=== PATIENT | male | born 1970 | race Caucasian/White ===

== ENCOUNTER → 2022-07-26 | Outpatient (CLI) | payer OTHER | LOC: CARD 14:30 | PROVIDERS: ATTEND Internal Medicine Hematology & Oncology | DX: C82.41 Follicular lymphoma grade IIIb, lymph nodes of head, face, and neck (principal) | CPT/HCPCS: 93306 ==

== ENCOUNTER 2022-07-30 13:14 | Day surgery (SDC) | payer OTHER ==
[2022-07-30] VITALS (9 sets, daily range): BP systolic 91–141; BP diastolic 52–92
[~2022-07-30] VITALS: Ht 182.9 cm; Wt 79.5 kg
[2022-07-30] MEDS ORDERED: 0.9% SODIUM CHLORIDE PF INJ 20 ML VIAL ONE (13:20)
[2022-07-30] MEDS ORDERED: LIDOCAINE/EPI 2% 1:200,00 (XYLOCAINE) 20 ML VIAL ONE (13:20)
[2022-07-30] MEDS ORDERED: HEParin (CENTRAL IV FLUSH) 500 UNIT/5 ML SYR ONE (13:20)
[2022-07-30] MEDS ORDERED: HEParin (CENTRAL IV FLUSH) 500 UNIT/5 ML SYR INJ ONE (13:43)
[2022-07-30] MEDS ORDERED: LIDOCAINE/EPI 2% 1:200,00 (XYLOCAINE) 20 ML VIAL INJ ONE (13:44)
[2022-07-30] MEDS ORDERED: 0.9% SODIUM CHLORIDE PF INJ 20 ML VIAL IV ONE (13:45)
[2022-07-30] MEDS ORDERED: ceFAZolin INJECTION 2,000 MG in NS (IVPB) 50 ML IV ONE (13:45)
[2022-07-30] MEDS ORDERED: fentaNYL INJ 100 MCG/2 ML AMP ONE (14:21)
[2022-07-30] MEDS ORDERED: MIDAZOLAM 2 MG/2 ML (VERSED) VIAL ONE (14:22)
[2022-07-30] MEDS ORDERED: PROPOFOL INJECTION 50 ML IV ONE (14:22)
[2022-07-30] MEDS ORDERED: LACTATED RINGERS 1,000 ML IV PRN (14:30)
--- NOTE | 2022-07-30 15:21 | Progress Note-Pre Operative ---
Pre-Operative Progress Note Date of Available H&P: Jul 26, 2022 Date H&P Reviewed: Jul 30, 2022 Time H&P Reviewed: 15:21 History & Physical: H&P Reviewed, Patient Examed, No changes noted Pre-Operative Diagnosis: lymphoma RON TANNER DO Jul 30, 2022 15:21
--- NOTE | 2022-07-30 15:52 | Progress Note-Post Operative ---
Post-Operative Progess Note Surgeon (s)/Two Way Radio Technician (s) Surgeon RON TANNER DO Two Way Radio Technician: na Pre-Operative Diagnosis lymphoma Post-Operative Diagnosis same Procedure & Operative Findings Date of Procedure 07/30/22 Procedure Performed/Findings PROCEDURE: Right internal jugular port placement using ultrasound guidance. COMPLICATIONS: None. INDICATIONS: The patient is a 51 year old male with lymphoma. Patient understands the risks and benefits of port placement and wished to proceed with the procedure. Consent was signed on the chart. PROCEDURE: The patient was taken to the operating suite, was prepped and draped in the sterile fashion. A surgical pause was performed. Ultrasound was used to locate the internal jugular vein. Once located anesthetic was infiltrated above it. Using micro-access kit, the right internal vein was accessed. Dark nonpulsatile blood was withdrawn. The wire was inserted. Fluoroscopy assured proper placement. The needle was removed. The micro-access dilator was advanced over the wire and the wire was removed. The regular wire was inserted and fluoroscopy assured proper placement. The wire was then secured. Local anesthetic was used to anesthetize from the neck for tunneling down to the right chest and for pocket creation. A 15 blade scalpel was used to make an incision over the right chest. Cautery was used to dissect down to the pectoral fascia. A pocket was created with blunt dissection. The dilator sheath was then advanced over the wire under fluoroscopy and the dilator and wire were removed. The [place] catheter was inserted through the sheath and the sheath was then removed. The [place] wire was removed. The catheter was then tunneled to the right chest pocket. Fluoroscopy was used to cut to length and this was then attached to the port which was then placed within the pocket. The port was then accessed without difficulty. It was then flushed with saline and then heparin. The subcutaneous tissues were then reapproximated using 3-0 Vicryl. The areas were then washed and dried. Skin Affix was placed over incision. The insertion point of the neck Skin Affix was placed over the incision. The patient tolerated the procedure well without complication and was taken to recovery room in stable condition. Chest x-ray is pending. Anesthesia Type mac c local Estimated Blood Loss Estimated blood loss (mL): minimal Specimens/Packing Specimens Removed RON Almendarez DO Jul 30, 2022 15:52
--- NOTE | 2022-07-30 15:54 | Anesthesia-General Post-Op ---
MAC Patient Condition Mental Status/LOC: Same as Preop Cardiovascular: Satisfactory Nausea/Vomiting: Absent Respiratory: Satisfactory Pain: Controlled Complications: Absent Post Op Complications Complications None Follow Up Care/Instructions Patient Instructions None needed. Anesthesiology Discharge Order Discharge Order Patient is doing well, no complaints, stable vital signs, no apparent adverse anesthesia problems. No complications reported per nursing. GEREMIAS NOLAN CRNA Jul 30, 2022 15:54
--- NOTE | 2022-07-30 15:55 | Discharge Inst-Simple/Standard ---
Discharge Inst-Standard Patient Instructions/Follow Up Plan of Care/Instructions/FU: 2 weeks Ryan Activity as Tolerated: Yes Discharge Diet: Regular Diet Other Inst to Patient Follow up Appt: Make appointment for 2 week. Instructions: No lifting greater than 10 pounds. No strenuous activity. May shower in 24 hours, no tub bath or soaking. Use incentive spirometer at home as directed. No Smoking Skin/Wound Care: You have special glue over your incision that will fall off on it's own. Ice pack on 15 min and off 30 min and repeat. This reduces swelling and discomfort. Symptoms to Report: Appetite Changes, Extremity Discoloration, Numbness/Tingling, Swelling Increased, Bleeding Excessive, Eyesight Changes, Pain Increased, Urine Color Change, Constipation(Persistent), Fever over 101 degree F, Pain/Pressure in chest, Urinating Difficulty, Cough Up/Vomit Blood, Heart Beat Irreg/Pounding, Pain/Pressure in jaw, Vaginal Bleeding Increase, Cramps in feet or legs, Lightheadedness, Pain/Pressure in shoulder, Diarrhea(Persistent), Memory Changes Suddenly, Questions/Concerns, Weight gain consecutive days, Dizziness/Fainting, Nausea/Vomiting, Shortness of Breath, Weight gain over 2 pounds If questions or concerns contact your physician Or seek help at emergency department. RON TANNER DO Jul 30, 2022 15:55
[2022-07-30] MEDS ORDERED: ONDANSETRON 4 MG/2 ML (SDV) Z0FRAN IVP PRN (16:00)
[2022-07-30] MEDS ORDERED: fentaNYL INJ 100 MCG/2 ML AMP IVP ONE (16:00)
--- NOTE | 2022-07-30 16:20 | Diagnostic Imaging Report ---
Right IJ catheter placed with the tip at the lower SVC in good position. No pneumothorax or pleural fluid. The heart size is within normal limits and there is no failure pattern. There is a 1.4 cm left perihilar density which may merely reflect summation of vascular structures but could be a mass. A short-term follow-up PA and lateral chest x-ray as follow-up recommended unless there is a known lesion at that site worked up from an outside facility. IMPRESSION: 1. Catheter in good position without its complication. 2. Indeterminate findings, mass versus summation artifact projecting left perihilar. PA and lateral follow-up is recommended Dictated by: Dictated on workstation # [id number]
--- NOTE | 2022-07-30 19:55 | Diagnostic Imaging Report ---
INDICATION: Port-A-Cath placement Intraoperative fluoroscopy view obtained with portable intensifier in surgery. Single view obtained demonstrates port over the right chest with catheter in the right internal jugular vein and catheter tip overlying the low SVC. 15.5 seconds of fluoroscopy time was used IMPRESSION: Intraoperative fluoroscopy view demonstrates Port-A-Cath placement as above. Dictated by: Dictated on workstation # [id number]
== END 2022-07-30 17:25 | disposition home or self-care (01) ==
LOC: SDC 13:14
PROVIDERS: ATTEND Surgery
DX: C85.90 Non-Hodgkin lymphoma, unspecified, unspecified site (principal); I87.2 Venous insufficiency (chronic) (peripheral); F17.210 Nicotine dependence, cigarettes, uncomplicated
CPT/HCPCS: 71045; 76000; 87081

== ENCOUNTER 2022-11-22 13:46 | Outpatient (RCR) | payer OTHER | END 2022-11-23 | disposition home or self-care (01) | LOC: ONC 13:46 | PROVIDERS: ATTEND Radiology Radiation Oncology | DX: Z51.0 Encounter for antineoplastic radiation therapy (principal); C82.41 Follicular lymphoma grade IIIb, lymph nodes of head, face, and neck; E78.2 Mixed hyperlipidemia; Z79.899 Other long term (current) drug therapy | CPT/HCPCS: 77300; 77301; 77334; 77338; 77386; 77470; 99205 ==

== ENCOUNTER 2022-12-04 10:50 | Outpatient (RCR) | payer OTHER | END 2022-12-24 | disposition home or self-care (01) | LOC: ONC 10:50 | PROVIDERS: ATTEND Radiology Radiation Oncology | DX: Z51.0 Encounter for antineoplastic radiation therapy (principal); C82.41 Follicular lymphoma grade IIIb, lymph nodes of head, face, and neck; E78.2 Mixed hyperlipidemia; Z79.899 Other long term (current) drug therapy | CPT/HCPCS: 77336; 77386 ==

== ENCOUNTER 2023-01-09 10:27 | Outpatient (RCR) | payer OTHER | END 2023-01-21 | disposition home or self-care (01) | LOC: ONC 10:27 | PROVIDERS: ATTEND Radiology Radiation Oncology | DX: C82.41 Follicular lymphoma grade IIIb, lymph nodes of head, face, and neck (principal) | CPT/HCPCS: 99213 ==

== ENCOUNTER → 2023-10-09 | Outpatient (CLI) | payer OTHER ==
[~2023-10-09] VITALS: Ht 182.9 cm; Wt 72.7 kg
== END | disposition home or self-care (01) ==
LOC: PREOP 05:37
PROVIDERS: ATTEND Surgery
DX: Z01.818 Encounter for other preprocedural examination (principal)

== ENCOUNTER 2023-10-13 09:57 | Day surgery (SDC) | payer OTHER ==
[2023-10-13] VITALS (14 sets, daily range): BP systolic 83–114; BP diastolic 43–88
[~2023-10-13] VITALS: Ht 182.9 cm; Wt 71.5 kg
[2023-10-13] MEDS ORDERED: LACTATED RINGERS 1,000 ML 1,000 ML IV PRN (10:45)
[2023-10-13] MEDS ORDERED: ceFAZolin INJECTION 2,000 MG in NS (IVPB) 50 ML 50 ML IV ONE (10:45)
[2023-10-13] MEDS ORDERED: LIDOCAINE 2% w/EPI 1:100,000 20 ML VIAL ONE (11:00)
--- NOTE | 2023-10-13 11:46 | Progress Note-Pre Operative ---
Pre-Operative Progress Note Date H&P Reviewed: Oct 13, 2023 Time H&P Reviewed: 11:45 History & Physical: H&P Reviewed, Patient Examed, No changes noted Pre-Operative Diagnosis: MALFUNCTIONING PORT RON TANNER DO Oct 13, 2023 11:45
[2023-10-13] MEDS ORDERED: LIDOCAINE 2% w/EPI 1:100,000 20 ML VIAL INJ ONE (12:13)
--- NOTE | 2023-10-13 12:22 | Anesthesia-General Post-Op ---
MAC Patient Condition Mental Status/LOC: Same as Preop Cardiovascular: Satisfactory Nausea/Vomiting: Absent Respiratory: Satisfactory Pain: Controlled Complications: Absent Post Op Complications Complications None Follow Up Care/Instructions Patient Instructions None needed. Anesthesiology Discharge Order Discharge Order Patient is doing well, no complaints, stable vital signs, no apparent adverse anesthesia problems. No complications reported per nursing. ARDEN CONNELLY CRNA Oct 13, 2023 12:22
--- NOTE | 2023-10-13 12:26 | Progress Note-Post Operative ---
Post-Operative Progess Note Surgeon (s)/Cardiology Teacher (s) Surgeon RON TANNER DO Cardiology Teacher: na Pre-Operative Diagnosis MALFUNCTIONING PORT Post-Operative Diagnosis Port catheter broken Procedure & Operative Findings Date of Procedure 10/13/23 Procedure Performed/Findings PROCEDURE: Removal of port, COMPLICATIONS: None INDICATIONS: The patient is a 52 year-old male who had a port previously placed. Patient is ok to have port removed malfunctioning. The patient was explained risk and benefits of the procedure and wished to proceed with procedure. Consent was signed on the chart. PROCEDURE: The patient was taken to the operating suite and was prepped and draped in sterile fashion. A surgical pause was performed. Local anesthetic was infiltrated to the area around the port and catheter. A number 15 blade scalpel was used to make an incision near right clavicle. Catheter was dissected around and pulled out which distall about 2 inches was broken off. Incision was made at port. Cautery was used to dissect down to the port which was then grasped and then dissected around. The catheter was removed in its entirety. The port was then able to be dissected out of the pocket and elevated. The wound was then irrigated with copious amounts of irrigation. Hemostasis had been achieved. The subcutaneous tissues were then reapproximated using 4-0 Vicryl. The area was then washed and dried and Skin Affix placed over the incision. The patient tolerated the procedure well without complication and was taken to recovery room in stable condition. Anesthesia Type mac c local Estimated Blood Loss Estimated blood loss (mL): minimal Specimens/Packing Specimens Removed none RON TANNER DO Oct 13, 2023 12:26
--- NOTE | 2023-10-13 12:57 | Diagnostic Imaging Report ---
INDICATION: Catheter complication Single AP view of chest is obtained. Since 07/30/2022, there has been apparent fracture of right anterior chest wall catheter with removal of the port. There is an approximately 16 cm in length catheter remnant extending from the right brachiocephalic vein to the right atrium. There is no pneumothorax or consolidation. IMPRESSION: Residual catheter remnant extending from right brachiocephalic vein to right atrium without other complication. Dictated by: Dictated on workstation # [id number]
[2023-10-13] MEDS ORDERED: MIDAZOLAM INJ 5 MG/5 ML VIAL ONE (13:07)
[2023-10-13] MEDS ORDERED: fentaNYL INJECTION 100 MCG/2 ML VIAL ONE (13:07)
[2023-10-13] MEDS ORDERED: HEParin (CATH LAB) 1,000 ML IV ONE (13:08)
[2023-10-13] MEDS ORDERED: NS IV 1000 ML 0 ML ONE (13:08)
[2023-10-13] MEDS ORDERED: LIDOCAINE 1% INJ 20 ML VIAL ONE (13:08)
--- NOTE | 2023-10-13 13:16 | Consultation-Cardiology ---
HPI-Cardiology Cardiology Consultation Date of Consultation 10/13/23 Date of Admission Time Seen by Provider: 13:13 Indication: Extraction of malfunctioning port HPI 52-year-old gentleman with a history of a port placed in 2021, became malfunction, was undergoing extraction today and portion of the port broke off. I was called for evaluation and extraction of the port Home Medications & Allergies Allergies: Coded Allergies: No Known Drug Allergies (Unverified , 07/30/22) Home Medication List Reviewed: Yes ZBA-[id number]-[id number] Hx Patient Social History Marital Status: Employed/Student: employed Smoking Status: Current Everyday Smoker Type Used: Cigarettes Recent Hopitalizations: No Alcohol Use?: No Past Medical History No known past history Family Medical History Significant Family History: No Pertinent Family Hx Review of Systems-General Review of Systems Constitutional: no symptoms reported, see HPI EENTM: see HPI, no symptoms reported Respiratory: no symptoms reported, see HPI Cardiovascular: see HPI Gastrointestinal: no symptoms reported, see HPI Genitourinary: no symptoms reported, see HPI Musculoskeletal: no symptoms reported, see HPI Skin: no symptoms reported, see HPI Psychiatric/Neurological: No Symptoms Reported, See HPI Physical Exam Physical Exam Vital Signs Vital Signs - First Documented 10/13/23 10:00 Temp 36.5 Pulse 70 Resp 20 B/P (MAP) 114/88 (97) Pulse Ox 98 O2 Delivery Room Air Capillary Refill : Height, Weight, BMI Height: '" Weight: lbs. oz. kg; 21.37 BMI Method: General Appearance: No Apparent Distress, WD/WN Eyes: Bilateral Eye Normal Inspection, Bilateral Eye PERRL, Bilateral Eye EOMI HEENT: PERRL/EOMI, TMs Normal, Normal ENT Inspection, Pharynx Normal, Moist Mucous Membranes Neck: Full Range of Motion, Normal Inspection, Non Tender, Supple, Carotid Bruit Respiratory: Chest Non Tender, Normal Breath Sounds, No Accessory Muscle Use, No Respiratory Distress Cardiovascular: Regular Rate, Rhythm, No Edema, No Gallop, No JVD, No Murmur, Normal Peripheral Pulses Gastrointestinal: Normal Bowel Sounds, No Organomegaly, No Pulsatile Mass, Non Tender, Soft Back: Normal Inspection, No CVA Tenderness, No Vertebral Tenderness Extremity: Normal Capillary Refill, Normal Inspection, Normal Range of Motion, Non Tender, No Calf Tenderness, No Pedal Edema Neurologic/Psychiatric: Alert, Oriented x3, No Motor/Sensory Deficits, Normal Mood/Affect Skin: Normal Color, Warm/Dry Lymphatic: No Adenopathy A/P-Cardiology Admission Diagnosis Malfunctioning port Assessment/Plan Malfunctioning port, portion of the port were broke off. X-ray reviewed Planning to attempt to extract through intravenous catheter History of lymphoma GONZALEZ ADRIAN MD Oct 13, 2023 13:16
--- NOTE | 2023-10-13 13:17 | Cardiac Procedure Note-CS/ASA ---
Pre-Procedure Note Pre-Op Procedure Note Date of Available H&P: Oct 13, 2023 Date H&P Reviewed: Oct 13, 2023 Time H&P Reviewed: 13:16 History & Physical: H&P Reviewed, Patient Examed, No changes noted Pre-Operative Diagnosis: MALFUNCTIONING PORT Moderate Sedation PreProcedure Time 13:16 ASA Score 3 Airway Lungs Heart ASA score ASA 1: a normal healthy patient ASA 2: a patient with a mild systemic disease (mid diabetes, controlled hypertension, obesity ASA 3: a patient with a severe systemic disease that limits activity (angina, COPD, prior Myocardial infarction) ASA 4: a patient with an incapacitating disease that is a constant threat to life (CHF, renal failure) ASA 5: a moribund patient not expected to survive 24 hrs. (ruptured aneurysm) ASA 6: a declared brain- patient whose organs are being harvested. For emergent operations, add the letter E after the classification Mallampati Classification Grade 3 Sedation Plan Analgesia, Amnesia, Plan communicated to team members, Discussed options with patient/fam, Discussed risks with patient/fam The patient is an appropriate candidate to undergo the planned procedure, sedation, and anesthesia. The patient immediately re-assessed prior to indication. GONZALEZ ADRIAN MD Oct 13, 2023 13:16
[2023-10-13] MEDS ORDERED: HEParin 1000 UNIT/ML (10ML VIAL) FOR BOLUS ONE (13:24)
--- NOTE | 2023-10-13 13:38 | Cardiac Procedure Note-[facility] ---
Cardiology Procedures Date of Procedure 10/13/23 Retrieval of portion of malfunctioning port Procedure report: Patient had broken portion of a port required retrieval. After explaining the procedure to the patient and his , pros and cons were explained. 7 [place] sheath was placed in the right femoral vein. Local anesthesia was used , conscious sedation with Versed and fentanyl EN Snair was used advanced to the right atrium under fluoroscopy, after multiple maneuvers I was able to capture the port. Retracted and removed with the sheath. Manual pressure applied. No complication noted Conclusion: Successful retrieval of a port through right femoral access GONZALEZ ADRIAN MD Oct 13, 2023 13:38
[2023-10-13] MEDS ORDERED: NS IV 1000 ML 1,000 ML IV SCH (13:45)
[2023-10-13] MEDS ORDERED: PATIENT MAY USE OWN MEDS, ALL PO SCH (13:45)
== END 2023-10-13 16:30 | disposition home or self-care (01) ==
LOC: SDC 09:57
PROVIDERS: ATTEND Surgery
DX: T82.594A Other mechanical complication of infusion catheter, initial encounter (principal); F17.210 Nicotine dependence, cigarettes, uncomplicated
CPT/HCPCS: 37197; 71045; 87081